=== PATIENT | male | born 1990 | race Caucasian/White ===

== ENCOUNTER 2019-06-22 04:23 | Emergency (ER) | payer OTHER ==
--- NOTE | 2019-06-22 04:55 | PDOC ---
History of Present Illness - General Chief Complaint: Injury Stated Complaint: FALL Time Seen by Provider: 06/22/19 04:55 History Source: Patient Exam Limitations: No Limitations - History of Present Illness Initial Comments: 28 year old male with no PMH presented to ED for left ankle pain s/p skateboarding injury. Pt reported pain is increasing, prompting him to come to the ED. Pt reported he did not take any pain medication or ice the area. Pt reported no numbness, tingling, weakness. ROS General: denied fever, chills, generalized weakness. HEENT: denied sore throat, rhinorrhea, ear pain. Cardiovascular: denied chest pain, palpitations, syncope, diaphoresis. Respiratory: denied shortness of breath, cough, sputum production, hemoptysis. Gastrointestinal: denied abdominal pain, nausea, vomiting, diarrhea, constipation, blood in stool. Genitourinary: denied dysuria, increased urinary frequency, hematuria, urinary incontinence, flank pain. Back: denied back pain. Musculoskeletal: denied joint pain, muscle pain, joint swelling. Neurological: denied headache, dizziness, numbness, tingling, weakness. Integumentary: denied rash, laceration, abrasion. Hematologic/Lymphatic: denied bruising or bleeding. PE Constitutional: Well-nourished, Well-developed, appearing stated age. HEENT: head is normocephalic, atraumatic. EOMI. PERRLA. no posterior pharyngeal erythema.no tonsillar swelling or exudates bilaterally. uvula midline. no peritonsillar swelling, tenderness or abscess. no jaw tenderness or misalignment. Neck: supple. Full ROM. Cardiovascular: regular heart rhythm. no murmurs. no pericardial friction rub. Respiratory: clear to auscultation bilaterally. no crackles, rhonchi or wheezing. no stridor. Gastrointestinal: soft, nontender. normal bowel sounds. no rebound, guarding, masses. Left ankle: tenderness to palpation of navicular. no tenderness to palpation of medial or lateral malleolus. no tenderness to palpation of base of 1st MT. 2+ DSP and PT pulses. no cyanosis to foot. capillary refill <2 seconds. Extremities: peripheral pulses intact. no lower extremity edema. Neurological: CN 2-12 grossly intact. moves all four extremities. Psych: awake, alert, oriented x3. follows commands. answers questions appropriately. Past History - Past Medical History Allergies/Adverse Reactions: Allergies Allergy/AdvReac Type Severity Reaction Status Date / Time No Known Allergies Allergy Verified 06/22/19 04:40 COPD: No CHF: No Diabetes: No GI Disorders: No - Suicide/Smoking/Psychosocial Hx Smoking History: Never smoked *Physical Exam - Vital Signs Last Vital Signs Temp Pulse Resp BP Pulse Ox 98.0 F 100 H 18 120/60 100 06/22/19 04:41 06/22/19 04:41 06/22/19 04:41 06/22/19 04:41 06/22/19 04:41 Medical Decision Making - Medical Decision Making 28 year old male with no PMH presented to ED for left ankle pain s/p skateboarding injury. Initial Vital Signs Temp Pulse Resp BP Pulse Ox 98.0 F 100 H 18 120/60 100 06/22/19 04:41 06/22/19 04:41 06/22/19 04:41 06/22/19 04:41 06/22/19 04:41 Afebrile. Tachycardic. No tachypnea. No hypotension. No hypoxia on room air. Labs ordered: none Medications ordered: motrin 600 mg PO once Imaging ordered: L ankle and foot XR 06/22/19 05:34 Ankle/Foot XR by my and Dr. Casas's read showed no acute fracture/dislocation. -Pending official report. Pt informed of results. TIA wrap applied to the ankle for comfort. Pt given crutches and crutches use education. Pt informed to take ibuprofen over the counter for pain control, stop all sports. Pt discharged. 06/25/19 13:28 Follow up: Official XR Report: Name: [facility] DE[facility] OF RADIOLOG[facility] Phys: Patricia Ziegler RESIDENT : 1990 Age: 28 Sex: M [facility] Acct: [id number] Loc: [address] Exam Date: 06/22/19 Status: [facility] [place] [id number] Unit Number: [id number] EXAM#: TYPE/EXAM: RESULT: [id number] RAD/ANKLE FOOT-LEFT* Left foot and ankle: Pain. Skateboard injury. 6 views of the left foot and ankle have been submitted. The 3 ankle images show no sign of fracture or subluxation and no sign of blastic or lytic changes. Swelling, foreign body or soft tissue air is not seen. 3 views of the left foot reveal no sign of fracture or subluxation and no sign of blastic or lytic changes. Significant arthritic changes are seen. There is no sign of calcaneal spurring. Swelling, foreign body or soft tissue air is not seen. If symptoms persist, further imaging may be of help. Impression: No acute left foot or ankle pathology. Reported By: Ari Moralez MD 06/22/19 0707 *DC/Admit/Observation/Transfer Diagnosis at time of Disposition: Ankle pain - Discharge Dispostion Disposition: HOME Condition at time of disposition: Stable Decision to Admit order: No - Referrals Referrals: Joie Anderson [Primary Care Provider] - Rj Hernadez MD [Staff Physician] - Kirstian Carcamo DO [Staff Physician] - Yusuf Santos MD [Staff Physician] - Roe Yang DO [Staff Physician] - - Patient Instructions Printed Discharge Instructions: DI for Ankle Pain Additional Instructions: Your X-ray was normal. Take ibuprofen over the counter for pain. Take as advised on label. Use crutches when walking around to avoid exacerbating your injury. Follow up with your primary care doctor within 3 days. Your care is not complete until you follow up. Bring all paperwork given to you today to your appointment. Follow up with an orthopedic doctor if your symptoms do not improve within 7-10 days. I have provided you with referrals should you need them. Return to the Emergency Department for increasing pain despite ibuprofen use, inability to walk, blueness to toes, weakness, numbness, tingling, chest pain, shortness of breath, or any other new, worsening or concerning symptoms. - Post Discharge Activity Forms/Work/School Notes: Back to Work
[2019-06-22] MEDS ORDERED: IBUPROFEN 600 MG TABLET (FP) PO ONE ×2 (05:03→05:11)
--- NOTE | 2019-06-22 05:03 | PDOC ---
Attending Attestation - Resident Resident Name: Patricia Ziegler - ED Attending Attestation I have performed the following: I have examined & evaluated the patient, The case was reviewed & discussed with the resident, I agree w/resident's findings & plan - HPI HPI: 06/22/19 05:02 Pt sprained his ankle yesterday while skateboarding. Pt wants XR because although he was walking yesterday, today it is painful. - Physicial Exam PE: 06/22/19 05:03 Agree with resident exam - Medical Decision Making 06/22/19 05:03 Motrin. Scott wrap; XR ankle. 06/22/19 05:45 XR shows no fractures in foot or ankle. Pt is stable for discharge.
[2019-06-22 05:08] VITALS: BP 120/60; PULSE 100; TEMP 98; BMI 19.0
== END 2019-06-22 05:50 | disposition home or self-care (01) ==
LOC: JER 04:23
DX: M25.571 Pain in right ankle and joints of right foot (principal); V00.131A Fall from skateboard, initial encounter; Y92.488 Other paved roadways as the place of occurrence of the external cause; Y93.51 Activity, roller skating (inline) and skateboarding; Y99.8 Other external cause status
CPT/HCPCS: 73610-TC-LT-FY; 73630-TC-LT; 99281-25